=== PATIENT | male | born 1930 | race Caucasian/White ===

== ENCOUNTER → 2017-01-27 | Outpatient (CLI) | payer OTHER, MEDICARE ==
[~2017-01-27] MED LIST: AGGRENOX CAPSU1 EACH PO; AMBEREN PO; ASACOL HD800 MG PO; CALCIUM 600 +1 EAC9 PO; FIBERCON625 M1 PO; FISH OIL 1,001000 M1 PO; HYDROCODON-ACE1 EAC7 PO; LIPITOR10 MG PO; OMEPRAZOLE20 M2 PO; PREDNISONE PO; VITAMIN B12 PO; VITAMIN C PO
[2017-01-27 14:13] LABS: HEMATOCRIT 35.9 % (42.0-52.0); HEMOGLOBIN 12.3 gm/dL (14.0-18.0); MCH 31.9 pg (26.0-34.0); MCHC 34.3 g/dL (28.0-37.0); MCV 92.9 fL (80.0-100.0); RBC 3.87 mil/uL (4.50-6.00); RDW 14.7 % (10.5-14.5); WBC 10.4 thou/uL (4.0-11.0)
[2017-01-27 14:20] LABS: CALCIUM 8.9 mg/dL (8.5-10.1)
[2017-01-27 14:26] LABS: ALBUMIN 3.6 g/dL (3.4-5.0); TOTAL BILIRUBIN 0.3 mg/dL (<0.1-1.0)
== END ==
LOC: ULTRA 10:43
PROVIDERS: Internal Medicine
DX: M79.675 Pain in left toe(s) (principal); M79.674 Pain in right toe(s)